=== PATIENT | female | born 1955 | race Caucasian/White ===

== ENCOUNTER 2016-08-09 22:54 | Emergency (ER) | payer OTHER ==
[~2016-08-09 22:54] MED LIST: ACETAMINOPHEN PR; ALBUTEROL MININEB NEB; ALBUTEROL17 GM INH; ALBUTEROL2.5 MG/0.5 INH; ALDACTONE25 MG PO; ALL DAY ALLERGY10 M1 PO; ALL DAY ALLERGY10 M2 PO; ALL DAY ALLERGY10 MG PO; ALPRAZOLAM PO; ALPRAZOLAM1 MG PO; AMBIEN PO; ANTIVERT PO; ARIXTRA2.5 MG/0.1 SQ; ASPIRIN PO; ASPIRIN81 MG PO; ATARAX PO; ATIVAN PO; AZITHROMYCIN250 MG PO; BACTRIM DS TABL1 TA1 PO; BUMEX1 MG PO; CELEXA PO; CIPRO PO; CITALOPRAM HBR10 MG PO; CITALOPRAM HBR40 MG PO; CLARITIN10 M2 PO; CLEOCIN HCL150 MG PO; CLEOCIN HCL300 M1 PO; CLEOCIN PO; COLACE PO; COMBIVENT MININEB INH; COMBIVENT U/D3 M2 INH; COUMADIN PO; COUMADIN10 MG PO; COUMADIN4 MG PO; COUMADIN5 MG PO; CPAP; DAPSONE25 MG PO; DELSYM30 MG/5 M1 PO; DIFLUCAN PO; DIOVAN HCT 160/1 TAB PO; DOXYCYCLINE HY100 M3 PO; ENALAPRIL MALEA10 MG PO; FERROUS GLUCON324 MG PO; FLEXERIL PO; FLEXERIL10 M1 PO; FOLIC ACID PO; FOLIC ACID1 MG PO; FUROSEMIDE40 MG PO; GLIPIZIDE10 MG PO; GLUCOTROL XL PO; GUAIFENESIN600 MG PO; HUMALOG100 U/M1 SQ; HUMALOG100 U/ML; HUMALOG100 U/ML SUBQ; HYDROCODONE GU PO; HYDROXYZINE PAM25 MG PO; HYZAAR 100-25 T1 TAB PO; KCL PO; KETOPROFEN PO; LANTUS SOLOSTAR3 ML SQ; LANTUS100 U/ML INJ; LANTUS100 U/ML SUBQ; LANTUS100 UNITS/ SUBQ; LASIX PO; LASIX20 MG PO; LEVAQUIN PO; LEVOTHYROXINE100 MCG PO; LIPITOR PO; LISINOPRIL PO; LISINOPRIL20 MG PO; LOPRESSOR PO; LORTAB 10-5001 EACH PO; LORTAB 5/500 TA1 TA1 PO; LOTRISONE CREAM45 GM TOP; LOVENOX150 MG/ML SQ; METALAZONE; METFORMIN HCL1000 M1 PO; METFORMIN HCL500 M1 PO; METFORMIN PO; METOLAZONE5 MG PO; METOPROLOL TAR25 MG PO; METRONIDAZOLE PO; MIRALAX255 GM PO; MYCOSTATIN POWD15 GM EXT; NAPROSYN500 MG PO; NEURONTIN800 MG PO; NITROSTAT0.4 MG SL; NON-ASPIRIN325 MG PO; NORCO 5/325 TAB1 TAB PO; OXYCODONE HCL30 MG PO; OXYCODONE15 M1 PO; OXYCONTIN30 MG PO; PERCOCET PO; PERCOCET10 PO; PERCOCET5/325 PO; PERCOLONE5 MG PO; PHENERGAN PO; PHENERGAN25 M1 PO; PREDNISONE PO; SANTYL15 G1 TP; SIMVASTATIN40 MG PO; STOOL SOFTENER PO; SYMBICORT INH; SYNTHROID PO; SYNTHROID0.1 MG PO; SYNTHROID112 MCG PO; SYNTHROID125 PO; TOBREX5 ML OP; TOPROL XL PO; TYLENOL #3 PO; TYLENOL325 M1 PO; TYLOX 5/500 CAP1 CAP PO; ULTRAM PO; VASOTEC PO; VASOTEC10 MG PO; VIBRAMYCIN100 M1 PO; VITAMIN B-121000 MC1 SL; WARFARIN SODIUM10 M1 PO; WARFARIN SODIUM4 M1 PO; XANAX1 MG PO; ZAROXOLYN5 MG PO; ZESTORETIC PO; ZITHROMAX1 G/PKT PO; ZOCOR PO; ZOCOR20 MG PO; ZYRTEC PO; ZYRTEC10 M1 PO
[2016-08-09 23:17] LABS: INR 1.3
== END 2016-08-09 23:51 | disposition home or self-care (01) ==
LOC: CFTX 22:54
PROVIDERS: Physician Assistant Medical
DX: T82.838A Hemorrhage due to vascular prosthetic devices, implants and grafts, initial encounter (principal); I25.2 Old myocardial infarction; E11.40 Type 2 diabetes mellitus with diabetic neuropathy, unspecified; J44.9 Chronic obstructive pulmonary disease, unspecified; F41.9 Anxiety disorder, unspecified; Z86.718 Personal history of other venous thrombosis and embolism; Z90.89 Acquired absence of other organs; Z79.899 Other long term (current) drug therapy; Z88.0 Allergy status to penicillin; Z88.2 Allergy status to sulfonamides; Z88.8 Allergy status to other drugs, medicaments and biological substances
CPT/HCPCS: 85610; 85730; 99283

== ENCOUNTER 2016-08-28 23:59 | Emergency (ER) | payer OTHER ==
--- NOTE | ~2016-08-28 | CR170 ---
[facility] A Service of [facility] RADIOLOGY TEXT RESULTS PATIENT: LUIS FELIPE MALCOLM I LOCATION: [place] : 59 UNIT #: [id number] AGE: [address]: Tal Mcgowan MD SEX: F ORDER DR: [id number] [facility] [address] [place], [place] [address] [id number] E MR#: [id number] Acc #: [id number] NAME: LUIS FELIPE MALCOLM I. : 1955 SEX: F STUDY DATE/TIME: 08/29/2016 0:26 UNIT: [facility] ROOM: STUDY DESCRIPTION: CR Knee 2 Views Rt Attending Physician: Kenan Mcgowan M.D. Ordering Physician: Kenan Mcgowan M.D. Primary Care Physician: Navin Marroquin M.D. MEDICAL IMAGING REPORT This report is preliminary unless electronic signature is present EXAM 2 views right knee. DATE 08/29/2016 HISTORY Right knee pain and soreness after falling today. COMPARISON None. FINDINGS No fracture or joint dislocation or joint effusion. There is etre-ug-frlfgswz medial compartment joint space narrowing. There is mild patellofemoral compartment joint space narrowing with prominent osteophyte formation. Small lateral compartment marginal osteophyte formation is present. Presumed vein graft harvesting surgical clips in the lower medial thigh region. IMPRESSION 1. Mild to mild to moderate medial and patellofemoral compartment osteoarthritic change. Mild marginal osteophyte formation of the lateral compartment. 2. No acute abnormality of the right knee. Dictated by... Karuna Reeves M.D. THIS IS AN ELECTRONICALLY VERIFIED REPORT Karuna Reeves M.D. at 08/29/2016 10:00 PM LLDaphne/rnmarquis [facility] A Service [facility] RADIOLOGY TEXT RESULTS PATIENT: LUIS FELIPE MALCOLM I LOCATION: [place] : 59 UNIT #: [id number] AGE: [address]: Tal Mcgowan MD SEX: F ORDER DR: TD: 08/29/2016 05:23 JOB #: [id number] MEDICAL IMAGING REPORT Page 1 of 1 COPY
== END 2016-08-29 02:19 | disposition home or self-care (01) ==
LOC: CED 23:59
DX: M17.11 Unilateral primary osteoarthritis, right knee (principal); J45.909 Unspecified asthma, uncomplicated; Z88.2 Allergy status to sulfonamides; Z88.0 Allergy status to penicillin; Z79.899 Other long term (current) drug therapy
CPT/HCPCS: 73560; 96372; 99283; J2270

== ENCOUNTER 2016-09-19 21:02 | Emergency (ER) | payer OTHER ==
--- NOTE | ~2016-09-19 | CR72 ---
[facility] A Service of [facility] & [facility] RADIOLOGY TEXT RESULTS PATIENT: LUIS FELIPE MALCOLM I LOCATION: [facility] : 59 UNIT #: [id number] AGE: [address]: Tal Chance MD SEX: F ORDER DR: [id number] [facility] [address] [place], [place] [address] [id number] E MR#: [id number] Acc #: [id number] NAME: LUIS FELIPE MALCOLM I. : 1955 SEX: F STUDY DATE/TIME: 09/19/2016 22:13 UNIT: [facility] ROOM: STUDY DESCRIPTION: CR Chest Single View Portable Attending Physician: Tal Chance M.D. Ordering Physician: Tal Chance M.D. Primary Care Physician: Navin Marroquin M.D. MEDICAL IMAGING REPORT This report is preliminary unless electronic signature is present EXAM Single view chest INDICATIONS Chest pain for 2 weeks. Seizures. Cough and congestion. FINDINGS Single portable AP view of the chest compared to 07/13/2016. The heart is enlarged. Central pulmonary vasculature is within normal limits. There is background COPD. No focal consolidation. IMPRESSION Cardiomegaly and COPD. No new findings. Dictated by... Pantera Florian M.D. THIS IS AN ELECTRONICALLY VERIFIED REPORT Pantera Florian M.D. at 09/20/2016 12:04 AM TASH/emma TD: 09/19/2016 23:58 JOB #: [id number] MEDICAL IMAGING REPORT Page 1 of 1 COPY
[2016-09-19 22:12] LABS: URINE SOURCE CLEAN CATCH
[2016-09-19 22:15] LABS: URINE APPEARANCE CLEAR; URINE BILIRUBIN NEG (NEG); URINE BLOOD 3+ (NEG); URINE COLOR YELLOW; URINE GLUCOSE NEG (NEG); URINE KETONE NEG (NEG); URINE LEUKOCYTE ESTERASE 3+ (NEG); URINE NITRATE NEG (NEG); URINE PROTEIN NEG (NEG); URINE SPECIFIC GRAVITY 1.014 (1.003-1.035)
[2016-09-19 22:18] LABS: CULTURE INDICATED? YES; URBCS1 AUWI 100-200 /[HPF] (0-2); URINE BACTERIA AUWI NEG (NEGATIVE); URINE SQUAMOUS EPITHELIAL CELL NONE SEEN /[HPF]; UWBCS1 AUWI 50-100 (0-5)
[2016-09-19 22:40] LABS: BASOPHIL% 0.5 % (0-2.5); EOSINOPHIL# 0.1 X10e3 (0-0.7); EOSINOPHIL% 1.2 % (0.0-7.0); HEMATOCRIT 39.5 % (35.0-45.0); HEMOGLOBIN 12.3 gm/dL (12.0-16.0); LYMPHOCYTE# 1.7 X10e3 (1.0-3.5); LYMPHOCYTE% 22.4 % (17.0-45.0); MEAN CELL VOLUME 79.3 FL (83-96); MEAN CORPUSCULAR HEMOGLOBIN 24.6 PG (28-34); MEAN PLATELET VOLUME 9.1 FL (6.5-11.5); MONOCYTE# 0.5 X10e3 (0-1.0); MONOCYTE% 5.9 % (3.0-12.0); NEUTROPHIL# 5.4 X10e3 (1.5-7.1); PLATELET COUNT 195 X10e3 (140-420); RED BLOOD COUNT 4.98 X10e (3.90-5.30); RED CELL DISTRIBUTION WIDTH 19.7 % (11.0-15.5); WHITE BLOOD COUNT 7.8 X10e3 (4.0-10.5)
[2016-09-19 22:41] LABS: DIFF IND NO
[2016-09-19 22:59] LABS: CALCIUM SERUM 9.1 mg/dL (8.4-10.2); CREATININE SERUM 0.8 mg/dL (0.6-1.4); GLOM FILT RATE Estimated 80.8 mL/min (>60); POTASSIUM 3.2 mmol/L (3.5-5.1)
== END 2016-09-19 23:51 | disposition home or self-care (01) ==
LOC: CED 21:02
PROVIDERS: Emergency Medicine
DX: G40.409 Other generalized epilepsy and epileptic syndromes, not intractable, without status epilepticus (principal); N39.0 Urinary tract infection, site not specified; E11.9 Type 2 diabetes mellitus without complications; J45.909 Unspecified asthma, uncomplicated; N28.9 Disorder of kidney and ureter, unspecified; G47.33 Obstructive sleep apnea (adult) (pediatric); Z98.890 Other specified postprocedural states; Z88.0 Allergy status to penicillin; Z88.2 Allergy status to sulfonamides; Z88.5 Allergy status to narcotic agent; Z79.899 Other long term (current) drug therapy; Z79.82 Long term (current) use of aspirin; Z79.4 Long term (current) use of insulin
CPT/HCPCS: 36415; 71010; 80048; 81003; 85025; 87086; 99284

== ENCOUNTER 2016-10-13 19:45 | Emergency (ER) | payer OTHER ==
--- NOTE | ~2016-10-13 | CT4 ---
[facility] A Service of [facility] RADIOLOGY TEXT RESULTS PATIENT: LUIS FELIPE MALCOLM LOCATION: [facility] : 59 UNIT #: [id number] AGE: [address]: Navin Walker MD SEX: F ORDER DR: [id number] [facility] [address] [place], [place] [address] [id number] E MR#: [id number] Acc #: [id number] NAME: LUIS FELIPE MALCOLM I. : 1955 SEX: F STUDY DATE/TIME: 10/13/2016 23:34 UNIT: [facility] ROOM: STUDY DESCRIPTION: CT Abd and Pelv Wo Cont Attending Physician: Navin Walker M.D. Ordering Physician: Navin Walker M.D. Primary Care Physician: Navin Marroquin M.D. MEDICAL IMAGING REPORT This report is preliminary unless electronic signature is present EXAM CT abdomen and pelvis without contrast INDICATION Right flan pain for 2 weeks. COMPARISON 10/31/2012 TECHNIQUE Axial 3 mm images were obtained through the abdomen and pelvis without IV or oral contrast. Sagittal and coronal reconstructions were generated. This CT exam was performed with one or more of the following radiation dose reduction techniques: automatic exposure control, adjustment of mA and/or kV according to patient size, and iterative reconstruction. FINDINGS The lung bases are clear. The liver, pancreas, adrenal glands and kidneys are normal. The study is limited by patient size and is very grainy. Spleen slightly enlarged measuring 16 cm in diameter and unchanged from the prior study from 2012. The gallbladder is normal. The aorta is normal in size and there is no adenopathy. The bowel is normal. There are postop changes involving the abdominal wall. The uterus and adnexal regions and bladder are normal. The bones are unremarkable. IMPRESSION 1. Mild splenomegaly, unchanged from 10/31/2012. 2. No urinary stones are identified. 3. Prior abdominal wall surgery. 4. The appendix is not visible but I do not see any evidence of appendicitis. [facility] A Service of [facility] RADIOLOGY TEXT RESULTS PATIENT: LUIS FELIPE MALCOLM LOCATION: [facility] : 59 UNIT #: [id number] AGE: [address]: Navin Walker MD SEX: F ORDER DR: Dictated by... Nathan Carias M.D. THIS IS AN ELECTRONICALLY VERIFIED REPORT Nathan Carias M.D. at 10/14/2016 5:56 AM TANMAY/emma TD: 10/14/2016 01:42 JOB #: [id number] MEDICAL IMAGING REPORT Page 1 of 1 COPY
[2016-10-13 21:00] LABS: BASOPHIL# 0.1 X10e3 (0-0.3); EOSINOPHIL# 0.1 X10e3 (0-0.7); EOSINOPHIL% 1.2 % (0.0-7.0); HEMATOCRIT 37.8 % (35.0-45.0); LYMPHOCYTE# 1.6 X10e3 (1.0-3.5); LYMPHOCYTE% 18.6 % (17.0-45.0); MEAN CELL VOLUME 79.6 FL (83-96); MEAN CORPUSCULAR HEMOGLOBIN 25.3 PG (28-34); MEAN CORPUSCULAR HGB CONC 31.8 g/dL (30-36); MEAN PLATELET VOLUME 8.2 FL (6.5-11.5); MONOCYTE# 0.5 X10e3 (0-1.0); MONOCYTE% 6.1 % (3.0-12.0); NEUTROPHIL# 6.3 X10e3 (1.5-7.1); NEUTROPHIL% 73.1 % (40-75); PLATELET COUNT 212 X10e3 (140-420); RED BLOOD COUNT 4.76 X10e (3.90-5.30); RED CELL DISTRIBUTION WIDTH 19.1 % (11.0-15.5); WHITE BLOOD COUNT 8.6 X10e3 (4.0-10.5)
[2016-10-13 21:02] LABS: DIFF IND NO
[2016-10-13 21:26] LABS: ALBUMIN SERUM 3.7 g/dL (3.5-5.0); BILIRUBIN, DIRECT 0.1 mg/dL (0.0-0.2); BILIRUBIN,INDIRECT 0.3 mg/dL (0.0-0.9); BILIRUBIN,TOTAL 0.4 mg/dL (0.2-2.0); BUN/CREATININE RATIO 14.44; CALCIUM SERUM 8.9 mg/dL (8.4-10.2); CREATININE SERUM 0.9 mg/dL (0.6-1.4); POTASSIUM 3.6 mmol/L (3.5-5.1); PROTEIN TOTAL SERUM 7.7 g/dL (6.0-8.3)
[2016-10-13 22:58] LABS: URINE APPEARANCE CLEAR; URINE BILIRUBIN NEG (NEG); URINE BLOOD NEG (NEG); URINE COLOR YELLOW; URINE GLUCOSE NEG (NEG); URINE KETONE NEG (NEG); URINE LEUKOCYTE ESTERASE TRACE (NEG); URINE NITRATE NEG (NEG); URINE PROTEIN NEG (NEG); URINE SPECIFIC GRAVITY 1.016 (1.003-1.035)
[2016-10-13 23:00] LABS: URINE BACTERIA AUWI NEG (NEGATIVE); URINE SQUAMOUS EPITHELIAL CELL OCC /[HPF]
[2016-10-13 23:09] LABS: CULTURE INDICATED? NO
[2016-10-13 23:24] LABS: INR 2.9
[2016-10-13 23:27] LABS: PROTHROMBIN TIME (PATIENT) 31.1 SECONDS (10.0-11.7)
== END 2016-10-14 00:23 | disposition home or self-care (01) ==
LOC: CED 19:45
PROVIDERS: Emergency Medicine
DX: M54.5 Low back pain (principal); G89.29 Other chronic pain; I25.10 Atherosclerotic heart disease of native coronary artery without angina pectoris; E11.9 Type 2 diabetes mellitus without complications; J44.9 Chronic obstructive pulmonary disease, unspecified; F41.9 Anxiety disorder, unspecified; F32.9 Major depressive disorder, single episode, unspecified; J40 Bronchitis, not specified as acute or chronic; I25.2 Old myocardial infarction; M19.90 Unspecified osteoarthritis, unspecified site; G47.30 Sleep apnea, unspecified; Z79.899 Other long term (current) drug therapy; Z79.891 Long term (current) use of opiate analgesic; Z79.02 Long term (current) use of antithrombotics/antiplatelets; Z88.0 Allergy status to penicillin; Z88.8 Allergy status to other drugs, medicaments and biological substances; Z88.2 Allergy status to sulfonamides
CPT/HCPCS: 74176; 80048; 80076; 81003; 82150; 83690; 85025; 85610; 99284

== ENCOUNTER 2016-10-18 02:46 | Emergency (ER) | payer OTHER | END 2016-10-18 03:40 | disposition home or self-care (01) | LOC: CED 02:46 | DX: J70.5 Respiratory conditions due to smoke inhalation (principal); E11.9 Type 2 diabetes mellitus without complications; J44.9 Chronic obstructive pulmonary disease, unspecified; Z88.0 Allergy status to penicillin; Z88.2 Allergy status to sulfonamides; Z88.8 Allergy status to other drugs, medicaments and biological substances; Z79.899 Other long term (current) drug therapy | CPT/HCPCS: 99283 ==

== ENCOUNTER 2016-10-23 20:26 | Emergency (ER) | payer OTHER ==
--- NOTE | ~2016-10-23 | CR90 ---
[facility] A Service of [facility] RADIOLOGY TEXT RESULTS PATIENT: LUIS FELIPE MALCOLM I LOCATION: [facility] : 59 UNIT #: [id number] AGE: [address]: Denisha Aguilar MD SEX: F ORDER DR: [id number] [facility] [address] [place], [place] [address] [id number] E MR#: [id number] Acc #: [id number] NAME: LUIS FELIPE MALCOLM I. : 1955 SEX: F STUDY DATE/TIME: 10/23/2016 21:15 UNIT: [facility] ROOM: STUDY DESCRIPTION: CR Elbow 2 View Lt Attending Physician: Denisha Aguilar M.D. Ordering Physician: Denisha Aguilar M.D. Primary Care Physician: Navin Marroquin M.D. MEDICAL IMAGING REPORT This report is preliminary unless electronic signature is present EXAM Left elbow, 3 views. HISTORY Elbow pain since Tuesday. FINDINGS AP and lateral examination of the elbow shows satisfactory articulation of the humerus with the proximal radius and ulna. There is no identifiable fracture, dislocation, joint effusion, or radiopaque foreign body in the soft tissues. IMPRESSION Normal left elbow. Dictated by... Carina Barbour M.D. THIS IS AN ELECTRONICALLY VERIFIED REPORT Carina Barbour M.D. at 10/24/2016 9:16 PM John TD: 10/23/2016 23:42 JOB #: [id number] MEDICAL IMAGING REPORT Page 1 of 1 COPY
--- NOTE | ~2016-10-23 | CT52 ---
[facility] A Service of [facility] RADIOLOGY TEXT RESULTS PATIENT: LUIS FELIEP MALCOLM I LOCATION: [facility] : 59 UNIT #: [id number] AGE: [address]: Denisha Aguilar MD SEX: F ORDER DR: [id number] [facility] [address] [place], [place] [address] [id number] E MR#: [id number] Acc #: [id number] NAME: LUIS FELIPE MALCOLM I. : 1955 SEX: F STUDY DATE/TIME: 10/23/2016 21:49 UNIT: [facility] ROOM: STUDY DESCRIPTION: CT Cervical Spine Wo Cont Attending Physician: Denisha Aguilar M.D. Ordering Physician: Denisha Aguilar M.D. Primary Care Physician: Navin Marroquin M.D. MEDICAL IMAGING REPORT This report is preliminary unless electronic signature is present EXAM CT cervical spine without contrast, 10/23/2016 HISTORY 61-year-old female with neck pain status post seizure today. COMPARISON CT cervical spine 01/22/2015 TECHNIQUE Helical scan performed through the cervical spine without IV contrast. Coronal and sagittal reformatted images. This CT exam was performed with one or more of the following radiation dose reduction techniques: automatic exposure control, adjustment of mA and/or kV according to patient size, and iterative reconstruction. FINDINGS Examination is somewhat limited by patient body habitus. Allowing for this, there is no evidence of acute fracture or subluxation. Vertebral body heights and alignment are normally maintained. Prevertebral soft tissues are normal. Atlantoaxial relationship is normal. Cervicothoracic junction is unremarkable. No gross bony canal stenosis. Disc spaces and facets appear unremarkable. Paravertebral soft tissues are unremarkable. Scanning through the lung apices is unremarkable. IMPRESSION Limited examination secondary to body habitus. Allowing for this, no acute cervical spine injury. Dictated by... [facility] A Service of [facility] RADIOLOGY TEXT RESULTS PATIENT: LUIS FELIPE MALCOLM I LOCATION: [facility] : 59 UNIT #: [id number] AGE: [address]: Denisha Aguilar MD SEX: F ORDER DR: Adithya Means M.D. THIS IS AN ELECTRONICALLY VERIFIED REPORT Adithya Means M.D. at 10/24/2016 6:16 PM KENDRA/emma TD: 10/24/2016 00:27 JOB #: [id number] MEDICAL IMAGING REPORT Page 1 of 1 COPY
--- NOTE | ~2016-10-23 | CT71 ---
[facility] A Service of [facility] RADIOLOGY TEXT RESULTS PATIENT: LUIS FELIPE MALCOLM I LOCATION: [facility] : 59 UNIT #: [id number] AGE: [address]: Denisha Aguilar MD SEX: F ORDER DR: [id number] [facility] [address] [place], [place] [address] [id number] E MR#: [id number] Acc #: [id number] NAME: LUIS FELIPE MALCOLM I. : 1955 SEX: F STUDY DATE/TIME: 10/23/2016 21:49 UNIT: [facility] ROOM: STUDY DESCRIPTION: CT Head Wo Contrast Attending Physician: Denisha Aguilar M.D. Ordering Physician: Denisha Aguilar M.D. Primary Care Physician: Navin Marroquin M.D. MEDICAL IMAGING REPORT This report is preliminary unless electronic signature is present EXAM CT head without contrast, 10/23/2016 HISTORY 61-year-old female with seizure today. Frontal headache today. COMPARISON CT head 02/27/2016 TECHNIQUE Routine unenhanced axial images performed through the brain. This CT exam was performed with one or more of the following radiation dose reduction techniques: automatic exposure control, adjustment of mA and/or kV according to patient size, and iterative reconstruction. FINDINGS No hemorrhage, acute infarction, mass lesion, or abnormal extraaxial fluid collection. No midline shift or focal mass effect. Ventricular system normal in size and configuration. No acute bony abnormality. Mild mucosal thickening right anterior ethmoid air cells. IMPRESSION 1. No acute intracranial abnormality. 2. Mucosal thickening right anterior ethmoid air cells. Dictated by... Adithya Means M.D. THIS IS AN ELECTRONICALLY VERIFIED REPORT Adithya Means M.D. at 10/24/2016 6:16 PM [facility] A Service of [facility] RADIOLOGY TEXT RESULTS PATIENT: LUIS FELIPE MALCOLM I LOCATION: [facility] : 59 UNIT #: [id number] AGE: [address]: Denisha Aguilar MD SEX: F ORDER DR: KENDRA/emma TD: 10/24/2016 00:18 JOB #: [id number] MEDICAL IMAGING REPORT Page 1 of 1 COPY
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
[2016-10-23 21:20] LABS: BASOPHIL# 0.1 X10e3 (0-0.3); BASOPHIL% 1.1 % (0-2.5); EOSINOPHIL# 0.1 X10e3 (0-0.7); EOSINOPHIL% 0.9 % (0.0-7.0); HEMATOCRIT 37.3 % (35.0-45.0); HEMOGLOBIN 11.9 gm/dL (12.0-16.0); LYMPHOCYTE# 1.5 X10e3 (1.0-3.5); LYMPHOCYTE% 16.4 % (17.0-45.0); MEAN CELL VOLUME 79.6 FL (83-96); MEAN CORPUSCULAR HEMOGLOBIN 25.3 PG (28-34); MEAN CORPUSCULAR HGB CONC 31.7 g/dL (30-36); MEAN PLATELET VOLUME 8.5 FL (6.5-11.5); MONOCYTE# 0.5 X10e3 (0-1.0); MONOCYTE% 5.6 % (3.0-12.0); NEUTROPHIL# 7.2 X10e3 (1.5-7.1); PLATELET COUNT 200 X10e3 (140-420); RED BLOOD COUNT 4.69 X10e (3.90-5.30); RED CELL DISTRIBUTION WIDTH 18.1 % (11.0-15.5); WHITE BLOOD COUNT 9.4 X10e3 (4.0-10.5)
[2016-10-23 21:35] LABS: DIFF IND NO
[2016-10-23 21:36] LABS: INR 4.2; PROTHROMBIN TIME (PATIENT) 45.4 SECONDS (10.0-11.7)
[2016-10-23 21:39] LABS: PARTIAL THROMBOPLASTIN TIME 47.1 SECONDS (23.5-31.3)
[2016-10-23 21:51] LABS: ALBUMIN SERUM 3.6 g/dL (3.5-5.0); BILIRUBIN, DIRECT 0.2 mg/dL (0.0-0.2); BILIRUBIN,INDIRECT 0.6 mg/dL (0.0-0.9); BILIRUBIN,TOTAL 0.8 mg/dL (0.2-2.0); BUN/CREATININE RATIO 12.85; CALCIUM SERUM 8.7 mg/dL (8.4-10.2); CREATININE SERUM 0.7 mg/dL (0.6-1.4); GLOM FILT RATE Estimated 94.8 mL/min (>60); PROTEIN TOTAL SERUM 7.5 g/dL (6.0-8.3)
== END 2016-10-24 00:20 | disposition home or self-care (01) ==
LOC: CED 20:26
PROVIDERS: Emergency Medicine
DX: R56.9 Unspecified convulsions (principal); I25.810 Atherosclerosis of coronary artery bypass graft(s) without angina pectoris; E78.5 Hyperlipidemia, unspecified; E11.40 Type 2 diabetes mellitus with diabetic neuropathy, unspecified; I10 Essential (primary) hypertension; Z88.0 Allergy status to penicillin; Z88.2 Allergy status to sulfonamides; Z79.899 Other long term (current) drug therapy; Z79.4 Long term (current) use of insulin; Z79.82 Long term (current) use of aspirin
CPT/HCPCS: 36415; 70450; 72125; 73070; 73090; 73130; 80048; 80076; 82947; 85025; 85610; 85730; 96372; 99285; J1170

== ENCOUNTER 2016-11-01 10:21 | Emergency (ER) | payer OTHER ==
--- NOTE | ~2016-11-01 | CR72 ---
[facility] A Service of [facility] RADIOLOGY TEXT RESULTS PATIENT: LUIS FELIPE MALCOLM I LOCATION: [facility] : 59 UNIT #: [id number] AGE: [address]: Roberto Kelly MD SEX: F ORDER DR: [id number] [facility] [address] [place], [place] [address] [id number] E MR#: [id number] Acc #: [id number] NAME: LUIS FELIPE MALCOLM I. : 1955 SEX: F STUDY DATE/TIME: 11/01/2016 11:11 UNIT: [facility] ROOM: STUDY DESCRIPTION: CR Chest Single View Portable Attending Physician: oRberto Klely M.D. Ordering Physician: Roberto Kelly M.D. Primary Care Physician: Navin Marroquin M.D. MEDICAL IMAGING REPORT This report is preliminary unless electronic signature is present EXAM Portable chest x-ray 11/01/2016 HISTORY Left-side rib pain. Shortness of air. Began today. Myocardial infarction 2004. Diabetes. Kidney disease. TECHNIQUE AP radiograph of the chest. COMPARISON STUDIES CT 10/13/2016. Chest radiograph 09/19/2016. FINDINGS Status post median sternotomy and CABG. Stable cardiac enlargement. The lungs well-inflated. Right lung clear. Ill-defined left hemidiaphragm, probably reflects relatively prominent subpulmonic fat in this region seen on prior CT examination. Trace pleural fluid not excluded. No dense airspace disease. No indication of pulmonary edema. No suspicious nodule and no pneumothorax. Dictated by... Jose A Root M.D. THIS IS AN ELECTRONICALLY VERIFIED REPORT Jose A Root M.D. at 11/03/2016 11:34 AM John TD: 11/01/2016 20:55 JOB #: [id number] [facility] A Service of [facility] RADIOLOGY TEXT RESULTS PATIENT: LUIS FELIPE MALCOLM I LOCATION: [facility] : 59 UNIT #: [id number] AGE: [address]: Roberto Kelly MD SEX: F ORDER DR: MEDICAL IMAGING REPORT Page 1 of 1 COPY
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
--- NOTE | ~2016-11-01 | EKG ---
PATIENT: LUIS FELIPE MALCOLM UNIT #: [id number] Ventricular Rate: 70 BPM Atrial Rate: 70 BPM P-R Interval: 196 ms QRS Duration: 106 ms Q-T Interval: 458 ms QTC Calculation(Bezet): 494 ms P [place]: 59 degrees Calculated R [place]: 16 degrees Calculated T [place]: 39 degrees Diagnosis Line: Normal sinus rhythm Diagnosis Line: Nonspecific ST abnormality Diagnosis Line: Prolonged QT Diagnosis Line: Abnormal ECG Diagnosis Line: When compared with ECG of 27-FEB-2016 17:43, Diagnosis Line: No significant change was found Diagnosis Line: Confirmed by GOKUL PAGAN MD ([id number]) on 11/03/2016 Diagnosis Line: 2:56:20 PM INTERPRETING MD: EJ FRANCISCO
[2016-11-01 11:07] LABS: ARTERIAL BLD GAS O2 SATURATION 93.2 % (90.0-100.0); ARTERIAL BLOOD GAS CARBOXY HB 1.3 %sat (0.0-9.0); ARTERIAL BLOOD GAS HCO3 33.9 mmol/L; ARTERIAL BLOOD GAS MET HB 0.8 %sat (0.0-2.0); ARTERIAL BLOOD GAS pH 7.397 (7.350-7.450)
[2016-11-01 11:08] LABS: ARTERIAL BLOOD GAS ALLEN TEST NORMAL; ARTERIAL BLOOD GAS ART SITE LEFT RADIAL; ARTERIAL BLOOD GAS DELIVERY NASAL CANNULA; ARTERIAL BLOOD GAS PO2 74.8 mmHg (80.0-100); ARTERIAL DRAW? YES
[2016-11-01 11:09] LABS: BASOPHIL# 0.1 X10e3 (0-0.3); BASOPHIL% 0.7 % (0-2.5); EOSINOPHIL# 0.1 X10e3 (0-0.7); HEMATOCRIT 33.8 % (35.0-45.0); HEMOGLOBIN 10.6 gm/dL (12.0-16.0); LYMPHOCYTE# 1.3 X10e3 (1.0-3.5); LYMPHOCYTE% 17.5 % (17.0-45.0); MEAN CELL VOLUME 80.1 FL (83-96); MEAN CORPUSCULAR HEMOGLOBIN 25.2 PG (28-34); MEAN CORPUSCULAR HGB CONC 31.4 g/dL (30-36); MEAN PLATELET VOLUME 8.4 FL (6.5-11.5); MONOCYTE# 0.4 X10e3 (0-1.0); MONOCYTE% 5.7 % (3.0-12.0); NEUTROPHIL# 5.7 X10e3 (1.5-7.1); NEUTROPHIL% 74.1 % (40-75); PLATELET COUNT 158 X10e3 (140-420); RED BLOOD COUNT 4.21 X10e (3.90-5.30); RED CELL DISTRIBUTION WIDTH 18.4 % (11.0-15.5); WHITE BLOOD COUNT 7.6 X10e3 (4.0-10.5)
[2016-11-01 11:17] LABS: DIFF IND NO
[2016-11-01 11:19] LABS: POC - CKMB <1.0 ng/mL (0.0-7.9); POC - TROPONIN <0.05 ng/mL (<=0.05)
[2016-11-01 11:33] LABS: INR 3.7; PARTIAL THROMBOPLASTIN TIME 47.2 SECONDS (23.5-31.3); PROTHROMBIN TIME (PATIENT) 40.2 SECONDS (10.0-11.7)
[2016-11-01 11:36] LABS: ALBUMIN SERUM 3.3 g/dL (3.5-5.0); BILIRUBIN, DIRECT 0.2 mg/dL (0.0-0.2); BILIRUBIN,INDIRECT 0.9 mg/dL (0.0-0.9); BILIRUBIN,TOTAL 1.1 mg/dL (0.2-2.0); BUN/CREATININE RATIO 18.75; CALCIUM SERUM 8.7 mg/dL (8.4-10.2); CREATININE SERUM 0.8 mg/dL (0.6-1.4); GLOM FILT RATE Estimated 80.8 mL/min (>60); POTASSIUM 3.1 mmol/L (3.5-5.1); PROTEIN TOTAL SERUM 6.7 g/dL (6.0-8.3)
[2016-11-01 11:51] LABS: URINE SOURCE CLEAN CATCH
[2016-11-01 11:55] LABS: URINE APPEARANCE CLEAR; URINE COLOR DK YELLOW; URINE LEUKOCYTE ESTERASE 1+ (NEG); URINE NITRATE NEG (NEG); URINE PH 5.5 (5-8); URINE PROTEIN NEG (NEG); URINE SPECIFIC GRAVITY 1.022 (1.003-1.035)
[2016-11-01 11:56] LABS: URINE BILIRUBIN NEG (NEG); URINE BLOOD 1+ (NEG); URINE GLUCOSE NEG (NEG); URINE KETONE NEG (NEG)
[2016-11-01 11:58] LABS: CULTURE INDICATED? YES; URINE BACTERIA AUWI NEG (NEGATIVE); URINE SQUAMOUS EPITHELIAL CELL OCC /[HPF]
[2016-11-01 13:05] LABS: POC - CKMB <1.0 ng/mL (0.0-7.9); POC - TROPONIN <0.05 ng/mL (<=0.05)
== END 2016-11-01 14:16 | disposition home or self-care (01) ==
LOC: CED 10:21
PROVIDERS: Emergency Medicine
DX: R10.9 Unspecified abdominal pain (principal); R79.1 Abnormal coagulation profile; R07.81 Pleurodynia; R06.02 Shortness of breath; R22.0 Localized swelling, mass and lump, head; M79.89 Other specified soft tissue disorders; I12.9 Hypertensive chronic kidney disease with stage 1 through stage 4 chronic kidney disease, or unspecified chronic kidney disease; N18.9 Chronic kidney disease, unspecified; I25.10 Atherosclerotic heart disease of native coronary artery without angina pectoris; J44.9 Chronic obstructive pulmonary disease, unspecified; E11.9 Type 2 diabetes mellitus without complications; F41.9 Anxiety disorder, unspecified; Z95.1 Presence of aortocoronary bypass graft; Z88.0 Allergy status to penicillin; Z88.8 Allergy status to other drugs, medicaments and biological substances; Z90.49 Acquired absence of other specified parts of digestive tract; Z98.890 Other specified postprocedural states
CPT/HCPCS: 36415; 36600; 71010; 74177; 80048; 80076; 81003; 82553; 82803; 83880; 84484; 85025; 85610; 85730; 87086; 93005; 94640; 99284; Q9967